=== PATIENT | female | born 1990 | race American Indian/Alaskan Native ===

== ENCOUNTER 2016-08-31 03:22 | Emergency (ER) | payer SELFPAY ==
[2016-08-31] MEDS ORDERED: TYLENOL PO ONE (04:53)
[2016-08-31] MEDS ORDERED: TYLENOL ONE (04:54)
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
[2016-08-31] MEDS ORDERED: MOTRIN PO ONE (10:14)
[2016-08-31] MEDS ORDERED: NORCO 7.5/325 PO ONE (10:14)
[2016-08-31] MEDS ORDERED: FLEXERIL PO ONE (10:14)
[2016-08-31 10:49] VITALS: BP 118/74
== END 2016-08-31 10:48 | disposition home or self-care (01) ==
LOC: ED 03:22
DX: S80.11XA Contusion of right lower leg, initial encounter (principal); V89.2XXA Person injured in unspecified motor-vehicle accident, traffic, initial encounter; Y93.89 Activity, other specified; Y99.8 Other external cause status; Y92.89 Other specified places as the place of occurrence of the external cause
CPT/HCPCS: 72170; 81025; 99284

== ENCOUNTER 2017-05-10 22:14 | Emergency (ER) | payer SELFPAY ==
[2017-05-11 00:48] LABS: Basophils % (Auto) 0.5 % (0.0-1.8); Eosinophils # (Auto) 0.1 K/mm3 (0.0-0.4); Eosinophils % (Auto) 0.9 % (0.0-4.3); Hematocrit 38.8 % (30.3-42.9); Hemoglobin 13.4 gm/dl (10.1-14.3); Lymphocytes # (Auto) 2.5 K/mm3 (1.2-5.4); Lymphocytes % (Auto) 32.9 % (13.4-35.0); Mean Corpuscular HGB Conc 35 % (30-34); Mean Corpuscular Hemoglobin 33 pg (28-32); Mean Corpuscular Volume 95 fl (79-97); Monocytes # (Auto) 0.4 K/mm3 (0.0-0.8); Platelet Count 292 K/mm3 (140-440); Red Blood Count 4.09 M/mm3 (3.65-5.03); Red Cell Distribution Width 12.6 % (13.2-15.2)
[2017-05-11 01:46] LABS: BUN/Creatinine Ratio 16; Blood Urea Nitrogen 11 mg/dL (7-17); Calcium 9.8 mg/dL (8.4-10.2); Hemolysis Index 9
[2017-05-11 06:00] LABS: Bilirubin,Urine NEG (Negative); Blood,Urine NEG (Negative); Color,Urine Yellow (Yellow); HCG Qualitative,Urine Negative (Negative); Mucus,Urine 3+ /HPF; Nitrite,Urine NEG (Negative); Protein,Urine <15 mg/dL mg/dL (Negative)
[2017-05-11 08:51] VITALS: BP 123/67
[2017-05-11] MEDS ORDERED: ZOFRAN ODT PO ONE (10:54)
--- NOTE | 2017-05-11 10:58 | Emergency Department Report ---
ED General Adult HPI - General Chief complaint: Dyspnea/Respdistress Stated complaint: BACK PAIN/ABD PAIN/SOB Time Seen by Provider: 05/11/17 10:50 Source: patient Mode of arrival: Ambulatory Limitations: No Limitations - History of Present Illness Initial comments: Patient is 26 years old female with no significant past medical history presented to the ER with 1 week history of nausea and vomiting. Associated with body ache and dizziness sometimes. She denied any fever. Patient also mentioned that she's been having some shortness of breath that but no chest pain or fever. Severity scale (0 -10): 0 - Related Data Previous Rx's Medication Instructions Recorded Last Taken Type Ibuprofen [Motrin] 800 mg PO Q8HR PRN #20 tablet 08/31/16 Unknown Rx methOCARBAMOL [Robaxin TAB] 500 mg PO Q6H PRN #20 tablet 08/31/16 Unknown Rx traMADol [Ultram 50 MG tab] 50 mg PO Q4HR PRN #12 tablet 08/31/16 Unknown Rx Allergies Allergy/AdvReac Type Severity Reaction Status Date / Time No Known Allergies Allergy Unverified 08/31/16 04:53 ED Review of Systems ROS: Stated complaint: BACK PAIN/ABD PAIN/SOB Other details as noted in HPI Comment: All other systems reviewed and negative Constitutional: denies: chills, fever Respiratory: shortness of breath. denies: cough Cardiovascular: denies: chest pain, palpitations, dyspnea on exertion, orthopnea , edema, syncope, paroxysmal nocturnal dyspnea Gastrointestinal: nausea, vomiting. denies: abdominal pain, diarrhea, constipation, hematemesis Genitourinary: denies: urgency, dysuria, frequency Neurological: denies: headache, weakness, numbness ED Past Medical Hx - Past Medical History Previous Medical History?: No - Surgical History Past Surgical History?: No - Social History Smoking Status: Never Smoker Substance Use Type: None - Medications Home Medications: Home Medications Medication Instructions Recorded Confirmed Last Taken Type Ibuprofen [Motrin] 800 mg PO Q8HR PRN #20 tablet 08/31/16 Unknown Rx methOCARBAMOL [Robaxin TAB] 500 mg PO Q6H PRN #20 tablet 08/31/16 Unknown Rx traMADol [Ultram 50 MG tab] 50 mg PO Q4HR PRN #12 tablet 08/31/16 Unknown Rx ED Physical Exam - General Limitations: No Limitations General appearance: alert, in no apparent distress - Head Head exam: Present: atraumatic, normocephalic - Eye Eye exam: Present: normal appearance - ENT ENT exam: Present: normal exam, normal orophraynx, mucous membranes moist - Neck Neck exam: Present: normal inspection. Absent: tenderness - Respiratory Respiratory exam: Present: normal lung sounds bilaterally. Absent: respiratory distress, wheezes, chest wall tenderness - Cardiovascular Cardiovascular Exam: Present: regular rate, normal rhythm, normal heart sounds - GI/Abdominal GI/Abdominal exam: Present: soft, normal bowel sounds. Absent: distended, tenderness, guarding, rebound, rigid, mass, bruit, pulsatile mass - Extremities Exam Extremities exam: Present: normal inspection, full ROM, normal capillary refill - Back Exam Back exam: Present: normal inspection, full ROM. Absent: tenderness, CVA tenderness (R), CVA tenderness (L), muscle spasm, paraspinal tenderness, vertebral tenderness - Neurological Exam Neurological exam: Present: alert, oriented X3, CN II-XII intact, normal gait - Skin Skin exam: Present: warm, intact, normal color. Absent: cyanosis, diaphoretic ED Course Vital Signs 05/11/17 05/11/17 00:08 08:50 Temperature 98.2 F 98.0 F Pulse Rate 81 74 Respiratory 16 16 Rate Blood Pressure 123/67 Blood Pressure 115/67 [Left] O2 Sat by Pulse 100 100 Oximetry - Reevaluation(s) Reevaluation #1: 05/11/17 11:46 Patient stated that she is feeling much better, no nausea no vomiting no abdominal pain. No fever. Patient labs reviewed which is unremarkable chest x- ray is negative for acute finding. However this is most likely a viral syndrome. I advised the patient to follow-up with her primary care physician and to return to the ER if her symptoms is not improving. ED Medical Decision Making - Lab Data Result diagrams: 05/11/17 00:21 05/11/17 00:21 - Radiology Data Radiology results: image reviewed interpreted by me: Chest x-ray no acute finding Critical care attestation.: If time is entered above; I have spent that time in minutes in the direct care of this critically ill patient, excluding procedure time. ED Disposition Clinical Impression: Viral syndrome Disposition: DC-01 TO HOME OR SELFCARE Is pt being admited?: No Condition: Stable Instructions: Viral Syndrome (ED) Referrals: LESLIE JO MD [Primary Care Provider] - 3-5 Days
--- NOTE | 2017-05-11 12:25 | XRay Report ---
AP CHEST: HISTORY: Short of breath AP view of the chest demonstrates a normal mediastinal and cardiac contour with clear lungs and normal bony and soft tissue structures. IMPRESSION: Unremarkable AP chest.
== END 2017-05-11 12:05 | disposition home or self-care (01) ==
LOC: ED 22:14
DX: B34.9 Viral infection, unspecified (principal)
CPT/HCPCS: 36415; 71045; 80048; 81001; 81025; 85025; 99284; Q0162